=== PATIENT | male | born 1945 | race Caucasian/White ===

== ENCOUNTER 2017-12-22 14:18 | Emergency (ER) | payer OTHER ==
[~2017-12-22] VITALS: Ht 167.6 cm; Wt 59.5 kg
[2017-12-22] MEDS ORDERED: MEDDOSEPAK PO (15:38)
[2017-12-22 15:49] VITALS: BP 129/74
== END 2017-12-22 15:49 | disposition home or self-care (01) | DRG 558 ==
LOC: ED 14:18
DX: M77.9 Enthesopathy, unspecified (principal); M25.521 Pain in right elbow; M79.18 Myalgia, other site; M25.622 Stiffness of left elbow, not elsewhere classified; X50.3XXA Overexertion from repetitive movements, initial encounter; Y93.59 Activity, other involving other sports and athletics played individually